=== PATIENT | female | born 1950 | race African-American/Black ===

== ENCOUNTER 2022-04-05 15:24 | Inpatient (IN) ==
[2022-04-05] MEDS ORDERED: SODIUM CHLORIDE 0.9% 500 ML IV STA (20:11)
[2022-04-05] MEDS ORDERED: ONDANSETRON 4 MG/2 ML VIAL IV STA (20:11)
[2022-04-05 21:32] LABS: Basophils # 0.1 10*3/uL (0.0-0.2); Basophils % 0.4 % (0.0-0.8); Eosinophils % 0.1 % (0.00-10.9); Hematocrit 39.5 VOL% (35.7-47.0); Hemoglobin 13.3 GM/DL (12.0-16.0); Immature Granulocytes % 0.9 %; Immature Granulocytes Absolute 0.13 #; Lymphocytes # 1.2 10*3/uL (1.4-4.0); Lymphocytes % 8.4 % (21.3-54.2); Mean Corpuscular HGB Conc 33.7 GM/DL (32-36); Mean Corpuscular Volume 82.6 FL (87-102); Mean Platelet Volume 10.1 FL (9.6-12.0); Monocytes # 1.2 10*3/uL (0.11-0.8); Monocytes % 8.5 % (1.7-12.7); Neutrophils % 81.7 % (38.7-73.9); Platelet Count 298 T/CUMM (130-400); Red Blood Count 4.78 MC/CUMM (3.8-5.5); Red Cell Distribution Width 14.5 % (9.3-17.3)
[2022-04-05 21:41] LABS: INR 1.1; PT Patient Result 11.9 SECS (10.5-12.0)
[2022-04-05 21:57] LABS: Alanine Aminotransferase 49 U/L (13-56); Albumin 2.9 G/DL (3.4-5.0); Alkaline Phosphatase 107 U/L (45-117); Aspartate Amino Transferase 49 U/L (0-37); Blood Urea Nitrogen 24 MG/DL (7-18); Calcium 9.3 MG/DL (8.5-10.1); Carbon Dioxide 25 MMOL/L (21-32); Chloride 99 MMOL/L (98-107); Glucose 113 MG/DL (74-106); Osmolality,Calculated 270.4 MOS/KG (273-304); Potassium 3.8 MMOL/L (3.5-5.1); Sodium 133 MMOL/L (136-145); Total Protein 7.6 G/DL (6.4-8.2)
[2022-04-05 22:27] LABS: Bacteria,Urine Many /HPF (Few); Mucus,Urine Occasional /LPF (Occasional); RBC,Urine 8 /HPF (0-4); Squamous Epithelial Cell,Urine Occasional /HPF (0-10)
[2022-04-05 22:28] LABS: Bilirubin,Urine Small mg/dL (Negative); Blood, Urine Moderate mg/dL (Negative); Glucose,Urine (UA) Negative (Negative); Ketones,Urine Negative (Negative); Nitrite,Urine Negative (Negative); Protein,Urine 100 mg/dL (Negative); Urine Appearance Slightly Cloudy (Clear); Urine Color Yellow (Yellow); Urine Specific Gravity > 1.030 (1.001-1.035); Urine pH 5.5 (4.5-8.0)
[2022-04-05] MEDS ORDERED: LEVOFLOXACIN INJ 750 MG/150 ML PREMIX IV STA (23:07)
[2022-04-05] MEDS ORDERED: ZALEPLON 5 MG CAPSULE PO PRN (23:08)
[2022-04-05] MEDS ORDERED: ONDANSETRON 4 MG/2 ML VIAL IV PRN (23:08)
[2022-04-05] MEDS ORDERED: GLUCAGON 1 MG VIAL IM PRN (23:08)
[2022-04-05] MEDS ORDERED: hydrALAZINE 20 MG/1 ML VIAL IV PRN (23:08)
[2022-04-05] MEDS ORDERED: guaiFENesin/DM ER 600-30 MG TABLET PO PRN (23:08)
[2022-04-05] MEDS ORDERED: DEXTROSE 10% 250 ML BAG IV PRN (23:08)
[2022-04-05] MEDS ORDERED: diphenhydrAMINE CAP 25 MG CAPSULE PO PRN (23:08)
[2022-04-06 04:16] LABS: Basophils % 0.3 % (0.0-0.8); Eosinophils % 0.1 % (0.00-10.9); Hematocrit 32.4 VOL% (35.7-47.0); Hemoglobin 10.8 GM/DL (12.0-16.0); Immature Granulocytes % 0.9 %; Immature Granulocytes Absolute 0.11 #; Lymphocytes # 1.4 10*3/uL (1.4-4.0); Lymphocytes % 11.7 % (21.3-54.2); Mean Corpuscular HGB Conc 33.3 GM/DL (32-36); Mean Corpuscular Volume 82.2 FL (87-102); Mean Platelet Volume 11.4 FL (9.6-12.0); Monocytes # 1.2 10*3/uL (0.11-0.8); Monocytes % 10.4 % (1.7-12.7); Neutrophils % 76.6 % (38.7-73.9); Platelet Count 169 T/CUMM (130-400); Red Blood Count 3.94 MC/CUMM (3.8-5.5); Red Cell Distribution Width 14.6 % (9.3-17.3); White Blood Count 11.6 T/CUMM (4-12)
[2022-04-06 04:39] LABS: Calcium 9.2 MG/DL (8.5-10.1); Osmolality,Calculated 266.5 MOS/KG (273-304); Potassium 4.3 MMOL/L (3.5-5.1)
[2022-04-06] MEDS: SODIUM CHLORIDE 0.9% 1,000 ML IV SCH (07:20)
[2022-04-06] MEDS: LEVOFLOXACIN 500 MG TABLET PO SCH (09:13)
[2022-04-06] MEDS: DOCUSATE SODIUM 100 MG CAPSULE PO SCH ×2 (09:13→20:52)
[2022-04-06] MEDS: BISACODYL 5 MG TABLET PO SCH (09:13)
[2022-04-06] MEDS: LOSARTAN 50 MG TABLET PO SCH (09:13)
[2022-04-06] MEDS: HEPARIN 5,000 UNIT/1 ML VIAL SUBCUT SCH ×2 (09:14→20:53)
[2022-04-06] MEDS: METOPROLOL SUCCINATE XL 25 MG TABLET PO SCH (09:14)
[2022-04-06] MEDS ORDERED: KETOROLAC 30 MG/1 ML VIAL IV ONE (09:49)
[2022-04-07] MEDS: SODIUM CHLORIDE 0.9% 1,000 ML IV SCH ×2 (00:58→16:04)
[2022-04-07] MEDS: ACETAMINOPHEN 325 MG TABLET PO PRN (01:29)
[2022-04-07 05:32] LABS: Basophils # 0.1 10*3/uL (0.0-0.2); Basophils % 0.6 % (0.0-0.8); Eosinophils # 0.1 10*3/uL (0.0-0.87); Eosinophils % 0.5 % (0.00-10.9); Hemoglobin 11.7 GM/DL (12.0-16.0); Immature Granulocytes % 2.9 %; Immature Granulocytes Absolute 0.35 #; Lymphocytes # 2.2 10*3/uL (1.4-4.0); Lymphocytes % 17.7 % (21.3-54.2); Mean Corpuscular HGB Conc 33.4 GM/DL (32-36); Mean Corpuscular Volume 83.1 FL (87-102); Mean Platelet Volume 12.3 FL (9.6-12.0); Monocytes # 1.1 10*3/uL (0.11-0.8); Monocytes % 9.2 % (1.7-12.7); Neutrophils % 69.1 % (38.7-73.9); Platelet Count 212 T/CUMM (130-400); Red Blood Count 4.21 MC/CUMM (3.8-5.5); Red Cell Distribution Width 14.6 % (9.3-17.3); White Blood Count 12.1 T/CUMM (4-12)
[2022-04-07 05:50] LABS: Albumin 2.4 G/DL (3.4-5.0); Bilirubin,Total 0.6 MG/DL (0.20-1.00); Calcium 9.6 MG/DL (8.5-10.1); Osmolality,Calculated 267.4 MOS/KG (273-304); Potassium 3.8 MMOL/L (3.5-5.1); Total Protein 7.7 G/DL (6.4-8.2)
[2022-04-07 05:58] LABS: Band Neutrophils 4 % (0-10); Eosinophils 1 % (0-10); Lymphocytes 16 % (20-55); Total Cells Counted 100
[2022-04-07 05:59] LABS: Hypochromia 1+; Microcytosis 1+
[2022-04-07 09:23] LABS: Hepatitis B Core IgM Quant 0.18 Index; Hepatitis B Surface Ag Quant < 0.10 Index; Hepatitis B Surface Ag Result Non-Reactive (NonReactive); Hepatitis C Virus Ab Quant 0.05 Index; Hepatitis C Virus Ab Result Non-Reactive (NonReactive)
[2022-04-07] MEDS ORDERED: KETOROLAC 30 MG/1 ML VIAL IV ONE (10:00)
[2022-04-07] MEDS: HEPARIN 5,000 UNIT/1 ML VIAL SUBCUT SCH ×2 (10:33→21:59)
[2022-04-07] MEDS: DOCUSATE SODIUM 100 MG CAPSULE PO SCH ×2 (10:59→22:01)
[2022-04-07] MEDS: LEVOFLOXACIN 500 MG TABLET PO SCH (10:59)
[2022-04-07] MEDS: METOPROLOL SUCCINATE XL 25 MG TABLET PO SCH (11:00)
[2022-04-07] MEDS: BISACODYL 5 MG TABLET PO SCH (11:00)
[2022-04-07] MEDS: LOSARTAN 50 MG TABLET PO SCH (11:00)
[2022-04-07] MEDS: LEVOFLOXACIN INJ 500 MG/100 ML PREMIX IV SCH (16:04)
[2022-04-08 05:22] LABS: Basophils # 0.1 10*3/uL (0.0-0.2); Eosinophils # 0.1 10*3/uL (0.0-0.87); Eosinophils % 1.4 % (0.00-10.9); Hematocrit 33.2 VOL% (35.7-47.0); Immature Granulocytes % 6.1 %; Lymphocytes # 2.7 10*3/uL (1.4-4.0); Lymphocytes % 27.1 % (21.3-54.2); Mean Corpuscular HGB Conc 33.1 GM/DL (32-36); Mean Corpuscular Volume 83.2 FL (87-102); Mean Platelet Volume 12.2 FL (9.6-12.0); Monocytes # 0.7 10*3/uL (0.11-0.8); Neutrophils % 57.4 % (38.7-73.9); Platelet Count 222 T/CUMM (130-400); Red Blood Count 3.99 MC/CUMM (3.8-5.5); Red Cell Distribution Width 14.5 % (9.3-17.3); White Blood Count 9.8 T/CUMM (4-12)
[2022-04-08 05:47] LABS: Band Neutrophils 2 % (0-10); Eosinophils 1 % (0-10); Lymphocytes 28 % (20-55); Myelocytes 2 %; Total Cells Counted 100
[2022-04-08 05:48] LABS: Hypochromia Slight; Microcytosis Slight
[2022-04-08] MEDS: SODIUM CHLORIDE 0.9% 1,000 ML IV SCH ×2 (07:40→09:18)
[2022-04-08 07:43] LABS: Albumin 2.3 G/DL (3.4-5.0); Bilirubin,Total 0.6 MG/DL (0.20-1.00); Calcium 9.5 MG/DL (8.5-10.1); Potassium 3.9 MMOL/L (3.5-5.1); Total Protein 7.1 G/DL (6.4-8.2)
[2022-04-08 08:02] VITALS: BP 177/67
[2022-04-08] MEDS: LOSARTAN 50 MG TABLET PO SCH (09:12)
[2022-04-08] MEDS: ACETAMINOPHEN 325 MG TABLET PO PRN (09:13)
[2022-04-08] MEDS: DOCUSATE SODIUM 100 MG CAPSULE PO SCH (09:14)
[2022-04-08] MEDS: BISACODYL 5 MG TABLET PO SCH (09:14)
[2022-04-08] MEDS: METOPROLOL SUCCINATE XL 25 MG TABLET PO SCH (09:14)
[2022-04-08] MEDS: HEPARIN 5,000 UNIT/1 ML VIAL SUBCUT SCH (09:15)
[2022-04-08] MEDS: LEVOFLOXACIN INJ 500 MG/100 ML PREMIX IV SCH (09:17)
== END 2022-04-08 14:59 | disposition home or self-care (01) | DRG 689 ==
LOC: N.EDINP 15:24 → N.ED 15:24 → N.5E 04-06 16:45 → SUATTDRO 04-07 13:20
PROVIDERS: ADMIT Internal Medicine; ATTEND Family Medicine